=== PATIENT | female | born 1995 | race Two or more races ===

== ENCOUNTER 2018-11-21 18:58 | Emergency (ER) | payer OTHER ==
[~2018-11-21] VITALS: Ht 160 cm; Wt 91.8 kg
[2018-11-21 19:05] VITALS: BP 122/77
[2018-11-21] MEDS ORDERED: DIPH,PERTUSS(ACELL),TET VAC/PF 0.5 ML IM-VACC ONE ×2 (19:37→20:00)
[2018-11-21] MEDS ORDERED: LIDOCAINE-MPF 1%, 5ML ONE (19:58)
[2018-11-21] MEDS ORDERED: AMOXICILLIN/CLAV 875-125MG TABLET PO STA (20:41)
[2018-11-21] MEDS ORDERED: AMOXICILLIN/CLAV 875-125MG TABLET ONE (20:47)
[2018-11-21] MEDS ORDERED: BACITRACIN ZINC OINT 500U/GM, 0.9 GM ONE (20:53)
== END 2018-11-21 20:58 | disposition home or self-care (01) ==
LOC: ED 20:48
DX: S01.511A Laceration without foreign body of lip, initial encounter (principal); W51.XXXA Accidental striking against or bumped into by another person, initial encounter; Y93.89 Activity, other specified; Y92.828 Other wilderness area as the place of occurrence of the external cause; Y99.8 Other external cause status
CPT/HCPCS: 12011; 90471; 90715